=== PATIENT | male | born 1980 | race Caucasian/White ===

== ENCOUNTER 2017-10-20 20:24 | Emergency (ER) | payer BC ==
[2017-10-20] MEDS ORDERED: Sodium Chloride 0.9% 1,000 ML IV ONE (20:47)
[2017-10-20] MEDS ORDERED: Sodium Chloride 0.9% 10 ML Syringe FLUSH PRN (20:47)
[2017-10-20] MEDS ORDERED: Ondansetron 4 MG/2 ML SDV IVPUSH ONE (20:47)
--- NOTE | 2017-10-20 21:32 | EDM.PDOC ---
ED HPI GENERAL MEDICAL PROBLEM - General Chief Complaint: Gastrointestinal Problem Stated Complaint: VOMITING Time Seen by Provider: 10/20/17 21:00 Source of Information: Reports: Patient History Limitations: Reports: No Limitations - History of Present Illness INITIAL COMMENTS - FREE TEXT/NARRATIVE: This is a 37-year-old male that comes in today complaining of nausea, vomiting, and diarrhea that started at 2 AM this morning. Patient states that he had multiple episodes throughout the day, usually between 4-5 hours between each episode. Per pt every one in the family has had the exact same symptoms and said that it lasted about 24 hours and then subsided. Patient states he came in because nothing has helped him- he tried [id number] Imodium and Motrin which did not help. He states that he also felt that he had a "pop" in the right back and felt he may have torn a muscle. Back pain is 5/10 with walking 2/ 10 with rest. He does state it is difficult to walk right now. He complains of fever, chills, watery diarrhea, nausea and vomiting. No other complaints at this time. - Related Data Allergies Allergy/AdvReac Type Severity Reaction Status Date / Time No Known Allergies Allergy Verified 10/20/17 20:30 Home Meds: Home Meds Loperamide [Imodium] 2 mg PO ASDIRECTED PRN 10/20/17 [History] Past Medical History - Past Surgical History GI Surgical History: Reports: Hernia Repair/Other Musculoskeletal Surgical History: Reports: Other (See Below) Other Musculoskeletal Surgeries/Procedures:: back Social & Family History - Tobacco Use Smoking Status *Q: Former Smoker Used Tobacco, but Quit: Yes Month/Year Tobacco Last Used: 2003 - Alcohol Use Days Per Week of Alcohol Use: 2 Number of Drinks Per Day: 12 Total Drinks Per Week: 24 - Recreational Drug Use Recreational Drug Use: No ED ROS GENERAL - Review of Systems Review Of Systems: See Below Constitutional: Reports: Fever, Chills, Weakness HEENT: Reports: No Symptoms Respiratory: Reports: No Symptoms. Denies: Cough Cardiovascular: Reports: No Symptoms. Denies: Chest Pain GI/Abdominal: Reports: Diarrhea, Nausea, Vomiting. Denies: Abdominal Pain Musculoskeletal: Reports: Back Pain (lower right back 2/10 at rest, 5/10 with walking) Neurological: Reports: No Symptoms Psychiatric: Reports: No Symptoms ED EXAM, GI/ABD - Physical Exam Exam: See Below Exam Limited By: No Limitations General Appearance: Alert, WD/WN, Mild Distress Eyes: Bilateral: Normal Appearance, EOMI Head: Atraumatic, Normocephalic Respiratory/Chest: No Respiratory Distress, Lungs Clear, Normal Breath Sounds, No Accessory Muscle Use, Chest Non-Tender Cardiovascular: Normal Peripheral Pulses, No Edema, No Gallop, No JVD, No Murmur , No Rub, Tachycardia (regular rhythm) GI/Abdominal Exam: Soft, Non-Tender, No Organomegaly, No Distention, No Abnormal Bruit, No Mass, Pelvis Stable, Abnormal Bowel Sounds (hypoactive) Back Exam: Normal Inspection, Decreased Range of Motion. No: Paraspinal Tenderness, Vertebral Tenderness Neurological: Alert, Oriented, CN II-XII Intact, Normal Cognition, Normal Gait, Normal Reflexes, No Motor/Sensory Deficits Psychiatric: Normal Affect, Normal Mood Skin Exam: Warm, Dry, Intact, Normal Color, No Rash Course - Vital Signs Last Recorded V/S: Last Vital Signs Temp 99.6 F 10/20/17 20:32 Pulse 150 H 10/20/17 20:32 Resp 20 10/20/17 20:32 BP 114/99 H 10/20/17 20:32 Pulse Ox 99 10/20/17 20:32 - Orders/Labs/Meds Orders: Active Orders 24 hr Category Date Time Status Peripheral IV Care [RC] . DIRECTED Care 10/20/17 20:47 Active Peripheral IV Care [RC] . DIRECTED Care 10/20/17 20:47 Active Sodium Chloride 0.9% [Saline Flush] Med 10/20/17 20:47 Active 10 ml FLUSH ASDIRECTED PRN Peripheral IV Insertion Adult [OM.PC] Routine Oth 10/20/17 20:47 Ordered Medication Orders Sodium Chloride (Saline Flush) 10 ml FLUSH ASDIRECTED PRN PRN Reason: Keep Vein Open Last Admin: 10/20/17 20:57 Dose: 10 ml Labs: Laboratory Tests 10/20/17 10/20/17 Range/Units 20:55 20:55 WBC 14.54 H (4.23-9.07) K/mm3 RBC 5.45 (4.63-6.08) M/mm3 Hgb 17.4 (13.7-17.5) gm/L Hct 48.4 (40.1-51.0) % MCV 88.8 (79.0-92.2) fl MCH 31.9 (25.7-32.2) pg MCHC 36.0 H (32.2-35.5) g/dl RDW Std Deviation 41.4 (35.1-43.9) fL Plt Count 177 (163-337) K/mm3 MPV 9.5 (9.4-12.3) fl Neut % (Auto) 81.8 H (34.0-67.9) % Lymph % (Auto) 9.7 L (21.8-53.1) % [place] % (Auto) 8.1 (5.3-12.2) % Eos % (Auto) 0 L (0.8-7.0) Baso % (Auto) 0.1 (0.1-1.2) % Neut # (Auto) 11.90 H (1.78-5.38) K/mm3 Lymph # (Auto) 1.41 (1.32-3.57) K/mm3 [place] # (Auto) 1.18 H (0.30-0.82) K/mm3 Eos # (Auto) 0.00 L (0.04-0.54) K/mm3 Baso # (Auto) 0.01 (0.01-0.08) K/mm3 Manual Slide Review Normal smear Sodium 134 L (136-145) mEq/L Potassium 3.3 L (3.5-5.1) mEq/L Chloride 98 (98-107) mEq/L Carbon Dioxide 20 L (21-32) mEq/L Anion Gap 19.3 H (5-15) BUN 19 H (7-18) mg/dL Creatinine 1.8 H (0.7-1.3) mg/dL Est Cr Clr Drug Dosing 65.85 mL/min Estimated GFR (MDRD) 42 (>60) mL/min BUN/Creatinine Ratio 10.6 L (14-18) Glucose 133 H (74-106) mg/dL Calcium 8.7 (8.5-10.1) mg/dL Magnesium 0.8 L (1.8-2.4) mg/dl Total Bilirubin 1.5 H (0.2-1.0) mg/dL AST 26 (15-37) U/L ALT 28 (16-63) U/L Alkaline Phosphatase 54 (46-116) U/L Total Protein 7.4 (6.4-8.2) g/dl Albumin 3.8 (3.4-5.0) g/dl Globulin 3.6 gm/dL Albumin/Globulin Ratio 1.1 (1-2) Meds: Medications Generic Name Dose Route Start Last Admin Trade Name Freq PRN Reason Stop Dose Admin Sodium Chloride 10 ml 10/20/17 20:47 10/20/17 20:57 Saline Flush FLUSH 10 ml ASDIRECTED PRN Administration Keep Vein Open Discontinued Medications Generic Name Dose Route Start Last Admin Trade Name Freq PRN Reason Stop Dose Admin Sodium Chloride 1,000 mls @ 1,000 mls/hr 10/20/17 20:47 10/20/17 20:57 Normal Saline IV 10/20/17 21:46 1,000 mls/hr ONETIME ONE Administration Ondansetron HCl 4 mg 10/20/17 20:47 10/20/17 20:57 Zofran IVPUSH 10/20/17 20:48 4 mg ONETIME ONE Administration - Re-Assessments/Exams Free Text/Narrative Re-Assessment/Exam: 10/20/17 21:34 Ordered IV fluids and Zofran for dehydration and nausea. 10/20/17 22:10 Rechecked on Miguel and he is feeling much better. The IV fluids and Zofran seemed to help, so I will send him home with a prescription for Zofran. We discussed his back pain and that it sounds like a musculoskeletal minor injury and that he should first try some hozj-[id number] medications and come back if it does not improve. He can also rest and ice the back. As for diarrhea, we discussed taking Immodium. Also discussed staying hydrated and the BRAT diet to see if he can try to start eating slowly. Will D/C home now. Pt understands and agrees with plan. Departure - Departure Time of Disposition: 22:20 Disposition: Home, Self-Care 01 Condition: Fair Clinical Impression: Gastroenteritis - Discharge Information Instructions: Viral Gastroenteritis, Adult, [id number], Dehydration, Adult, [id number] Referrals: PCP,None [Primary Care Provider] - Forms: ED Department Discharge Additional Instructions: Take Zofran as needed for Nausea. Take over the counter Immodium for diarrhea. Try to stay hydrated with water, gatorade, pedialyte. Can also try liquid diet of soup, etc until nausea resolves. As appetite returns, may try BRAT diet: Banana, rice, applesauce, toast. Follow up with Primary Care Doctor. Return to ED if worsening back pain or nausea/vomiting/diarrhea or increased fever.
== END 2017-10-20 22:27 | disposition home or self-care (01) ==
LOC: JD.ED 20:24
DX: K52.9 Noninfective gastroenteritis and colitis, unspecified (principal); Z87.891 Personal history of nicotine dependence
CPT/HCPCS: 36415; 80053; 83735; 85025; 96361; 96374; 99284; J2405; J7040; J7050